=== PATIENT | male | born 1985 | race Caucasian/White ===

== ENCOUNTER 2021-10-03 17:44 | Emergency (ER) | payer SELFPAY ==
[2021-10-03 20:32] LABS: CORONAVIRUS 2019 SARS-COV-2 NEGATIVE (NEGATIVE); INFLUENZA A NAA NEGATIVE (NEGATIVE)
== END 2021-10-03 21:06 | disposition home or self-care (01) ==
LOC: FER 17:44
PROVIDERS: Nurse Practitioner Family
DX: J02.0 Streptococcal pharyngitis (principal); Z20.822 Contact with and (suspected) exposure to COVID-19
CPT/HCPCS: 87880; 96372; 99283; J0561; J1100; U0002

== ENCOUNTER 2021-12-01 20:02 | Emergency (ER) | payer SELFPAY ==
[2021-12-01] MEDS ORDERED: ZPAK PO (21:21)
[2021-12-01] MEDS ORDERED: MEDROL 4MG DOSEP4 MG PO (21:21)
== END 2021-12-01 21:25 | disposition home or self-care (01) ==
LOC: FER 20:02
DX: J06.9 Acute upper respiratory infection, unspecified (principal)
CPT/HCPCS: 71045; J1100